=== PATIENT | male | born 1960 | race African-American/Black ===

== ENCOUNTER 2018-03-01 05:34 | Emergency (ER) | payer BC ==
[~2018-03-01] VITALS: Ht 177.8 cm; Wt 90.7 kg
[~2018-03-01 05:34] MED LIST: BENICAR HCT 401 EACH PO; EXCEDRIN ASA F1 EAC1 PO; IBUPROFEN 800800 MG PO; NORCO 5-325 TA1 EACH PO; ZANTAC 150MG T150 M1 PO
[2018-03-01 06:07] LABS: ABSOLUTE NEUTROPHILS 10.5 thou/uL (1.4-8.2); BASOPHILS 0.3 % (0.0-2.0); EOSINOPHILS 2.1 % (0.0-3.0); HEMATOCRIT 46.8 % (42.0-52.0); HEMOGLOBIN 15.6 gm/dL (14.0-18.0); LYMPHOCYTES 9.7 % (24.0-44.0); MCH 30.5 pg (26.0-34.0); MCHC 33.4 g/dL (28.0-37.0); MCV 91.4 fL (80.0-100.0); MONOCYTES 8.1 % (1.0-8.0); PLATELET COUNT 158 thou/uL (150-400); POLYS 79.8 % (36.0-66.0); RBC 5.12 mil/uL (4.50-6.00); RDW 13.7 % (10.5-14.5); WBC 13.1 thou/uL (4.0-11.0)
[2018-03-01] MEDS ORDERED: LOSARTAN-HCTZ1 EAC2 PO (06:07)
[2018-03-01 06:18] LABS: ANION GAP 8 mmol/L (7-16); BUN 23 mg/dL (7-18); CALCIUM 8.6 mg/dL (8.5-10.1); CHLORIDE 111 mmol/L (98-107); CO2 26 mmol/L (21-32); CREATININE 1.4 mg/dL (0.7-1.3); GLUCOSE 124 mg/dL (74-106); POTASSIUM 3.9 mmol/L (3.5-5.1); SODIUM 145 mmol/L (136-145)
[2018-03-01 06:24] LABS: ALBUMIN 3.5 g/dL (3.4-5.0); DIRECT BILIRUBIN < 0.1 mg/dL (<0.1-0.3); LIPASE 200 U/L (73-393); SGOT 16 U/L (15-37); SGPT 36 U/L (30-65); TOTAL BILIRUBIN 0.3 mg/dL (<0.1-1.0); TOTAL PROTEIN 6.5 g/dL (6.4-8.2)
[2018-03-01] MEDS ORDERED: PEPCID20 MG PO (08:18)
[2018-03-01 08:19] VITALS: BP 144/82
== END 2018-03-01 08:22 | disposition home or self-care (01) ==
LOC: ER 05:34
PROVIDERS: Emergency Medicine
DX: R10.12 Left upper quadrant pain (principal); I10 Essential (primary) hypertension; F17.210 Nicotine dependence, cigarettes, uncomplicated

== ENCOUNTER 2019-10-29 11:25 | Emergency (ER) | payer BC ==
[~2019-10-29] VITALS: Ht 175.3 cm; Wt 97.5 kg
[~2019-10-29 11:25] MED LIST changes: +LOSARTAN-HCTZ1 EAC2 PO; +PEPCID20 MG PO
[2019-10-29 11:56] LABS: ABSOLUTE NEUTROPHILS 4.4 thou/uL (1.4-8.2); BASOPHILS 0.4 % (0.0-2.0); HEMATOCRIT 45.8 % (42.0-52.0); HEMOGLOBIN 15.1 gm/dL (14.0-18.0); LYMPHOCYTES 21.4 % (24.0-44.0); MCH 30.4 pg (26.0-34.0); MCV 92.2 fL (80.0-100.0); MONOCYTES 8.2 % (1.0-8.0); PLATELET COUNT 159 thou/uL (150-400); RBC 4.97 mil/uL (4.50-6.00); RDW 13.9 % (10.5-14.5); WBC 6.6 thou/uL (4.0-11.0)
[2019-10-29] MEDS ORDERED: PROTONIX40 M4 PO (12:05)
[2019-10-29] MEDS ORDERED: VALSARTAN80 MG PO (12:06)
[2019-10-29 12:16] LABS: ALBUMIN 3.7 g/dL (3.4-5.0); BUN 23 mg/dL (7-18); CALCIUM 9.1 mg/dL (8.5-10.1); CREATININE 1.5 mg/dL (0.7-1.3); GLUCOSE 258 mg/dL (74-106); SGOT 18 U/L (15-37); SGPT 35 U/L (30-65); TOTAL BILIRUBIN 0.4 mg/dL (<0.1-1.0); TOTAL PROTEIN 6.8 g/dL (6.4-8.2); TROPONIN-I <0.06 ng/mL (<0.06)
[2019-10-29 12:47] LABS: ANION GAP 10 mmol/L (7-16); CHLORIDE 103 mmol/L (98-107); CO2 26 mmol/L (21-32); POTASSIUM 3.7 mmol/L (3.5-5.1); SODIUM 139 mmol/L (136-145)
[2019-10-29 14:00] VITALS: BP 152/89
[2019-10-29] MEDS ORDERED: ULTRAM 50MG TAB50 MG PO (14:06)
[2019-10-29] MEDS ORDERED: PANTOPRAZOLE SO40 M1 PO (14:06)
[2019-10-29] MEDS ORDERED: CARAFATE1 GM/10 ML PO (14:06)
--- NOTE | 2019-10-30 08:12 | EKG ---
[address] [address] ELECTROCARDIOGRAM REPORT Name: MAN HUDSON Room #: DEP [facility] INFIRMARYSixto#: [id number] Admission: 10/29/19 Attend Phys: Discharge: 10/29/19 Date of : 64 Report #: [id number] THIS REPORT FOR: //name// [facility] ED Test Date: 2019-10-29 Test Time: 11:29:31 Pat Name: MAN HUDSON Department: Room: Gender: M Software Lead: : 1960 Requested By: Jam Simmons Order Number: [id number] MD: Jairo Hensley Measurements Intervals [place] Rate: 60 P: 12 HI: 153 QRS: 86 QRSD: 93 T: 57 QT: 409 QTc: 409 Interpretive Statements Sinus rhythm Borderline ST elevation, anterior leads Compared to ECG 03/07/2013 07:09:46 ST (T wave) deviation now present Electronically Signed On 10-30-2019 8:12:00 LAUNDRY TECH by Jairo Hensley [email or web address] <ELECTRONICALLY SIGNED> By: Jairo Hensley MD 10/30/19 0812 1129 28 Jairo Hensley MD /PETE
== END 2019-10-29 14:38 | disposition home or self-care (01) ==
LOC: ER 11:25
PROVIDERS: Emergency Medicine
DX: R07.89 Other chest pain (principal); E78.00 Pure hypercholesterolemia, unspecified; I10 Essential (primary) hypertension; F17.210 Nicotine dependence, cigarettes, uncomplicated

== ENCOUNTER 2019-11-11 08:25 | Emergency (ER) | payer BC ==
[~2019-11-11] VITALS: Ht 177.8 cm; Wt 92.1 kg
[~2019-11-11 08:25] MED LIST changes: +CARAFATE1 GM/10 ML PO; +PANTOPRAZOLE SO40 M1 PO; +PROTONIX40 M4 PO; +ULTRAM 50MG TAB50 MG PO; +VALSARTAN80 MG PO
[2019-11-11 09:05] LABS: ABSOLUTE NEUTROPHILS 4.4 thou/uL (1.4-8.2); BASOPHILS 0.5 % (0.0-2.0); EOSINOPHILS 3.9 % (0.0-3.0); HEMATOCRIT 49.3 % (42.0-52.0); HEMOGLOBIN 16.5 gm/dL (14.0-18.0); LYMPHOCYTES 24.4 % (24.0-44.0); MCH 30.5 pg (26.0-34.0); MCHC 33.5 g/dL (28.0-37.0); MCV 91.2 fL (80.0-100.0); MONOCYTES 10.6 % (1.0-8.0); PLATELET COUNT 146 thou/uL (150-400); POLYS 60.6 % (36.0-66.0); RBC 5.41 mil/uL (4.50-6.00); RDW 13.9 % (10.5-14.5); WBC 7.3 thou/uL (4.0-11.0)
[2019-11-11 09:09] LABS: ANION GAP 7 mmol/L (7-16); BUN 23 mg/dL (7-18); CALCIUM 9.4 mg/dL (8.5-10.1); CHLORIDE 105 mmol/L (98-107); CO2 30 mmol/L (21-32); CREATININE 1.5 mg/dL (0.7-1.3); GLUCOSE 123 mg/dL (74-106); POTASSIUM 4.2 mmol/L (3.5-5.1); SODIUM 142 mmol/L (136-145)
[2019-11-11 09:18] LABS: ALBUMIN 4.2 g/dL (3.4-5.0); LIPASE 208 U/L (73-393); SGOT 22 U/L (15-37); SGPT 38 U/L (30-65); TOTAL BILIRUBIN 0.5 mg/dL (<0.1-1.0); TOTAL PROTEIN 7.8 g/dL (6.4-8.2); TROPONIN-I <0.06 ng/mL (<0.06)
[2019-11-11] MEDS ORDERED: TRAMADOL 50 MG50 MG PO (10:01)
[2019-11-11] MEDS ORDERED: NAPROXEN250 MG PO (10:01)
[2019-11-11] MEDS ORDERED: NORFLEX100 MG PO (10:01)
[2019-11-11 10:45] LABS: URINE BILIRUBIN NEGATIVE (Negative); URINE BLOOD NEGATIVE (Negative); URINE CLARITY CLEAR; URINE COLOR YELLOW; URINE GLUCOSE-RANDOM* NEGATIVE (Negative); URINE KETONES NEGATIVE (Negative); URINE LEUKOCYTES-REFLEX NEGATIVE (Negative); URINE NITRITE-REFLEX NEGATIVE (Negative); URINE PROTEIN (DIPSTICK) NEGATIVE (Negative); URINE UROBILINOGEN 0.2 E.U./dl (0.2-1.0)
[2019-11-11 11:08] VITALS: BP 150/102
--- NOTE | 2019-11-11 12:25 | EKG ---
[place] [address] [facility] [place] [address] ELECTROCARDIOGRAM REPORT Name: MAN HUDSON [facility] [id number] Admission: 11/11/19 Attend Phys: Discharge: 11/11/19 Date of : 64 Report #: [id number] THIS REPORT FOR: //name// [facility] ED Test Date: 2019-11-11 Test Time: 09:41:13 Pat Name: MAN HUDSON Department: Room: Gender: M Director Drug: tino : 1960 Requested By: Oj Hawkins Order Number: [id number] MD: Ambrosio Sands Measurements Intervals [place] Rate: 54 P: 45 CT: 162 QRS: 74 QRSD: 91 T: 42 QT: 434 QTc: 412 Interpretive Statements Sinus rhythm Probable left atrial enlargement Compared to ECG 10/29/2019 11:29:31 ST (T wave) deviation no longer present Electronically Signed On 11-11-2019 12:25:38 COOK DESSERT by Ambrosio Sands [email or web address] <ELECTRONICALLY SIGNED> By: Ambrosio Sands MD 11/11/19 1225 0941 0941 Ambrosio Sands MD /PETE
== END 2019-11-11 11:09 | disposition home or self-care (01) ==
LOC: ER 08:25
PROVIDERS: Emergency Medicine
DX: R10.13 Epigastric pain (principal); R10.12 Left upper quadrant pain; M54.5 Low back pain; R79.89 Other specified abnormal findings of blood chemistry; I10 Essential (primary) hypertension; J45.909 Unspecified asthma, uncomplicated; K21.9 Gastro-esophageal reflux disease without esophagitis; Z79.899 Other long term (current) drug therapy

== ENCOUNTER 2020-03-26 12:49 | Emergency (ER) | payer BC ==
[~2020-03-26] VITALS: Ht 177.8 cm; Wt 96.6 kg
[~2020-03-26 12:49] MED LIST changes: +NAPROXEN250 MG PO; +NORFLEX100 MG PO; +TRAMADOL 50 MG50 MG PO
[2020-03-26] MEDS ORDERED: SODIUM BICARBO650 M3 PO (13:19)
[2020-03-26] MEDS ORDERED: BISOPROLOL-HCT1 EACH PO (13:19)
[2020-03-26] MEDS ORDERED: OMEPRAZOLE40 MG PO (13:19)
[2020-03-26 13:35] LABS: ABSOLUTE NEUTROPHILS 4.1 thou/uL (1.4-8.2); BASOPHILS 0.4 % (0.0-2.0); EOSINOPHILS 2.4 % (0.0-3.0); HEMATOCRIT 47.3 % (42.0-52.0); HEMOGLOBIN 15.9 gm/dL (14.0-18.0); LYMPHOCYTES 25.9 % (24.0-44.0); MCH 30.6 pg (26.0-34.0); MCHC 33.7 g/dL (28.0-37.0); MCV 90.8 fL (80.0-100.0); MONOCYTES 8.6 % (1.0-8.0); PLATELET COUNT 159 thou/uL (150-400); POLYS 62.7 % (36.0-66.0); RBC 5.21 mil/uL (4.50-6.00); RDW 13.5 % (10.5-14.5); WBC 6.5 thou/uL (4.0-11.0)
[2020-03-26 13:37] LABS: ANION GAP 6 mmol/L (7-16); BUN 21 mg/dL (7-18); CALCIUM 8.8 mg/dL (8.5-10.1); CHLORIDE 100 mmol/L (98-107); CO2 28 mmol/L (21-32); CREATININE 1.4 mg/dL (0.7-1.3); GLUCOSE 103 mg/dL (74-106); POTASSIUM 3.9 mmol/L (3.5-5.1); SODIUM 134 mmol/L (136-145)
[2020-03-26 13:47] LABS: ALBUMIN 3.9 g/dL (3.4-5.0); SGOT 18 U/L (15-37); SGPT 37 U/L (30-65); TOTAL BILIRUBIN 0.6 mg/dL (<0.1-1.0); TOTAL PROTEIN 7.1 g/dL (6.4-8.2); TROPONIN-I <0.06 ng/mL (<0.06)
--- NOTE | 2020-03-26 14:09 | EKG ---
[facility] [place] [address] ELECTROCARDIOGRAM REPORT Name: WOODY HUDSONSRI LIN Room #: [facility] M.R.#: [id number] Admission: Attend Phys: Discharge: Date of : 64 Report #: [id number] THIS REPORT FOR: cc: MARION LUA - Family physician unknown Jairo Hensley MD ~ THIS REPORT FOR: //name// [facility] ED Test Date: 2020-03-26 Test Time: 12:57:46 Pat Name: MAN HUDSON Department: Room: Gender: M Beater Operator: LAN : 1960 Requested By: Marissa Young Order Number: [id number] MD: Jairo Hensley Measurements Intervals [place] Rate: 57 P: 43 CT: 164 QRS: 70 QRSD: 91 T: 28 QT: 410 QTc: 400 Interpretive Statements Sinus rhythm Probable left atrial enlargement Minimal ST elevation, anterior leads Compared to ECG 11/11/2019 09:41:13 ST (T wave) deviation now present Electronically Signed On 03-26-2020 14:07:56 CDT by Jairo Hensley [email or web address] <ELECTRONICALLY SIGNED> By: Jairo Hensley MD 03/26/20 1407 1257 1257 Jairo Hensley MD /EPI
[2020-03-26] MEDS ORDERED: NORVASC5 MG PO (15:29)
[2020-03-26 15:46] VITALS: BP 143/89
== END 2020-03-26 15:46 | disposition home or self-care (01) ==
LOC: ER 12:49
PROVIDERS: Physician Assistant
DX: I10 Essential (primary) hypertension (principal); R07.89 Other chest pain; R51 Headache; R35.0 Frequency of micturition; E78.00 Pure hypercholesterolemia, unspecified; J45.909 Unspecified asthma, uncomplicated; K21.9 Gastro-esophageal reflux disease without esophagitis; F17.210 Nicotine dependence, cigarettes, uncomplicated; Z79.899 Other long term (current) drug therapy

== ENCOUNTER 2021-10-04 18:00 | Emergency (ER) | payer BC ==
[~2021-10-04] VITALS: Ht 177.8 cm; Wt 103.9 kg
[~2021-10-04 18:00] MED LIST changes: +BISOPROLOL-HCT1 EACH PO; +NORVASC5 MG PO; +OMEPRAZOLE40 MG PO; +SODIUM BICARBO650 M3 PO
[2021-10-04] MEDS ORDERED: ATENOLOL-CHLOR1 EACH PO (18:19)
[2021-10-04] MEDS ORDERED: ATORVASTATIN CA20 MG PO (18:19)
[2021-10-04] MEDS ORDERED: JANUMET XR 1001 EACH PO (18:19)
[2021-10-04] MEDS ORDERED: VALSARTAN320 MG PO (18:20)
[2021-10-04] MEDS ORDERED: LANTUS SOL100 UNIT/1 SUBQ (18:20)
[2021-10-04 19:19] LABS: BASOPHILS 0.3 % (0.0-2.0); EOSINOPHILS 3.2 % (0.0-3.0); HEMOGLOBIN 13.6 gm/dL (14.0-18.0); LYMPHOCYTES 18.1 % (24.0-44.0); MCH 29.9 pg (26.0-34.0); MCHC 33.9 g/dL (28.0-37.0); MCV 88.2 fL (80.0-100.0); MONOCYTES 12.6 % (1.0-8.0); PLATELET COUNT 159 thou/uL (150-400); POLYS 65.8 % (36.0-66.0); RBC 4.54 mil/uL (4.50-6.00); RDW 14.4 % (10.5-14.5); WBC 9.2 thou/uL (4.0-11.0)
[2021-10-04 19:30] LABS: CALCIUM 8.9 mg/dL (8.5-10.1); CREATININE 1.6 mg/dL (0.7-1.3); POTASSIUM 3.5 mmol/L (3.5-5.1)
[2021-10-04 19:35] LABS: ALBUMIN 3.5 g/dL (3.4-5.0); TOTAL BILIRUBIN 0.3 mg/dL (0.2-1.0); TOTAL PROTEIN 7.2 g/dL (6.4-8.2)
[2021-10-04 20:05] VITALS: BP 133/62
--- NOTE | 2021-10-05 12:31 | EKG ---
[place] [address] [facility] [place] [address] ELECTROCARDIOGRAM REPORT Name: MAN HUDSON [facility] [id number] Admission: 10/04/21 Attend Phys: Discharge: 10/04/21 Date of : 64 Report #: [id number] [facility] ED Test Date: 2021-10-04 Test Time: 18:19:16 Pat Name: MAN HUDSON Department: Room: Gender: Car Lot Attendant: JESSICA : 1960 Requested By: Gus Roldan Order Number: [id number] MD: Mann Rodriguez Measurements Intervals [place] Rate: 86 P: 40 MA: 169 QRS: 62 QRSD: 89 T: 32 QT: 344 QTc: 412 Interpretive Statements Sinus rhythm No significant abnormality Compared to ECG 03/26/2020 12:57:46 No significant changes found Electronically Signed On 10-05-2021 12:31:12 OPEN WINDER by Mann Rodriguez [email or web address] <ELECTRONICALLY SIGNED> By: Mann Rodriguez MD, [facility] 10/05/21 1231 1819 1819 Mann Rodriguez MD, FACC /EPI
== END 2021-10-04 20:06 | disposition home or self-care (01) ==
LOC: ER 18:00
PROVIDERS: Emergency Medicine
DX: J45.909 Unspecified asthma, uncomplicated (principal); Z20.822 Contact with and (suspected) exposure to COVID-19; R25.2 Cramp and spasm; M25.511 Pain in right shoulder; M25.512 Pain in left shoulder; I10 Essential (primary) hypertension; K21.9 Gastro-esophageal reflux disease without esophagitis; F17.210 Nicotine dependence, cigarettes, uncomplicated; Z79.4 Long term (current) use of insulin; Z79.891 Long term (current) use of opiate analgesic; Z79.899 Other long term (current) drug therapy; Z79.1 Long term (current) use of non-steroidal anti-inflammatories (NSAID)